=== PATIENT | female | born 1980 | race Caucasian/White ===

== ENCOUNTER 2021-06-18 13:30 | Emergency (ER) | payer OTHER ==
[~2021-06-18] VITALS: Ht 170.2 cm; Wt 108.4 kg
--- NOTE | 2021-06-18 13:30 | NUR ---
BIB SELF C/O CHEST PRESSURE RADIATES TO L JAW AND L ARM STARTED YESTERDAY MORNING AT 7AM. CHEST PAIN IS 3/10 ON PS AND RADIATES TO HER LEFT ARM AND RIGHT SHOULDER. STATED YESTERDAY HER CHEST PAIN WAS A 10/10. PT ATTACHED TO MONITOR. PROVIDED WITH WARM BLANKET FOR COMFORT. WILL CONTINUE TO MONITOR.
--- NOTE | 2021-06-18 13:49 | NUR ---
IV ESTABLISHED 20G L AC. LABS DRAWN AND COLLECTED AT BEDSIDE.
--- NOTE | 2021-06-18 13:55 | NUR ---
X RAY AT BEDSIDE
[2021-06-18 14:05] LABS: BASOPHILS % (AUTO) 0.4 % (0.0-2.0); EOSINOPHILS % (AUTO) 1.3 % (0.0-6.0); HEMATOCRIT 38 % (33-45); LYMPHOCYTES # (AUTO) 1.9 K/uL (0.8-4.8); LYMPHOCYTES % (AUTO) 22.5 % (20.0-44.0); MEAN CORPUSCULAR HGB CONC 32 g/dl (31.0-36.0); MEAN CORPUSCULAR VOLUME 61 fL (82-100); MONOCYTES # (AUTO) 0.9 K/uL (0.1-1.30); MONOCYTES % (AUTO) 10.6 % (2.0-12.0); NEUTROPHILS # (AUTO) 5.6 K/uL (1.8-8.9); NEUTROPHILS % (AUTO) 65.2 % (43.0-81.0); PLATELET COUNT (AUTO) 292 K/uL (150-450); RED BLOOD CELL COUNT(AUTO) 6.27 MIL/uL (4.0-5.2); WHITE BLOOD COUNT (AUTO) 8.6 K/uL (4.3-11.0)
[2021-06-18 14:15] LABS: CALCIUM, SERUM 9.7 mg/dL (8.5-10.1); CARBON DIOXIDE 27 mmol/L (21-32); CHLORIDE 101 mmol/L (98-107); CREATININE 0.8 mg/dL (0.6-1.3); GLUCOSE 111 mg/dL (74-106); POTASSIUM 3.7 mmol/L (3.5-5.1); SODIUM SERUM 136 mmol/L (136-145); UREA NITROGEN, BLOOD 12 mg/dL (7-18)
--- NOTE | 2021-06-18 17:43 | NUR ---
IV removed. Catheter intact and site benign. Pressure and 4x4 applied to site. No bleeding noted.Patient discharged to home in stable condition. Written and verbal after care instructions given. Patient verbalizes understanding of instruction.
[2021-06-18 17:45] VITALS: BP 128/78
[2021-06-18 19:03] LABS: BAND % (MANUAL) 1 % (0.0-5.0); EOSINOPHILS % (MANUAL) 1 % (0-4); LYMPHOCYTES % (MANUAL) 36 % (16-48); MONOCYTES % (MANUAL) 5 % (0-11.0); NEUTROPHILS % (MANUAL) 57 (42-76)
== END 2021-06-18 17:45 | disposition home or self-care (01) ==
LOC: ER 13:35
DX: R07.89 Other chest pain (principal); I25.10 Atherosclerotic heart disease of native coronary artery without angina pectoris; E78.5 Hyperlipidemia, unspecified; I10 Essential (primary) hypertension; Z88.6 Allergy status to analgesic agent; Z91.040 Latex allergy status; Z60.2 Problems related to living alone
CPT/HCPCS: 36415; 71045-TC; 80048-TC; 84484-TC; 85025-TC